=== PATIENT | male | born 1950 | race Caucasian/White ===

== ENCOUNTER 2017-01-30 12:02 | Inpatient (IN) | payer OTHER, MEDICAID ==
[~2017-01-30] VITALS: Ht 165.1 cm; Wt 71.9 kg
[2017-01-30 12:02] VITALS: BP_SYST 139
[2017-01-30 12:40] LABS: BASOPHILS # (AUTO) 0.1 K/uL (0.0-0.2); BASOPHILS % (AUTO) 0.6 % (0.0-2.0); EOSINOPHILS # (AUTO) 0.1 K/uL (0.0-0.4); EOSINOPHILS % (AUTO) 0.6 % (0.0-4.0); HEMATOCRIT 32.7 % (36-54); HEMOGLOBIN 10.8 g/dL (14.0-18.0); LYMPHOCYTES # (AUTO) 1.3 K/uL (1.0-5.5); LYMPHOCYTES % (AUTO) 8.1 % (20.5-51.5); MEAN CORPUSCULAR HEMOGLOBIN 29 pg (27-31); MEAN CORPUSCULAR HGB CONC 33 % (32-36); MEAN CORPUSCULAR VOLUME 89 fL (79.0-98.0); MONOCYTES # (AUTO) 1.2 K/uL (0.0-1.0); MONOCYTES % (AUTO) 7.7 % (1.7-9.3); NEUTROPHILS # (AUTO) 13.1 K/uL (1.8-7.7); PLATELET COUNT (AUTO) 182 K/uL (130-430); RED BLOOD CELL COUNT(AUTO) 3.67 MIL/uL (4.2-6.2); RED CELL DISTRIBUTION WIDTH 17.3 % (9.0-15.0); WHITE BLOOD COUNT (AUTO) 15.8 K/uL (4.8-10.8)
[2017-01-30 12:47] LABS: INR 1.2 (0.80-1.20); PROTHROMBIN TIME 13.5 SECS (9.5-12.5)
[2017-01-30 12:57] LABS: CREATININE 4.18 mg/dL (0.55-1.30); POTASSIUM 4.5 mmol/L (3.5-5.1); TOTAL BILIRUBIN 1.7 mg/dL (0.0-1.0); TOTAL PROTEIN, SERUM 8.2 g/dL (6.4-8.3)
[2017-01-30] MEDS ORDERED: CEFEPIME 1 GM in D5W 50 ML IV ONE (13:15)
[2017-01-30] MEDS ORDERED: VANCOMYCIN HCL 1,000 MG in NS 250 ML IV ONE (13:15)
[2017-01-30] MEDS ORDERED: LIDOCAINE 1%, 20 ML MDV 20 ML ONE (13:17)
[2017-01-30] MEDS ORDERED: AMI200 PO (13:25)
[2017-01-30] MEDS ORDERED: CEFEPIME 1 GM/VIAL (MAXIPIME) ONE ×2 (14:27→14:35)
[2017-01-30] MEDS ORDERED: VANCOMYCIN HCL 1000 MG/VIAL IV ONE (14:31)
[2017-01-30] MEDS ORDERED: SCOP1PAT TD (14:42)
[2017-01-30] MEDS ORDERED: PANT40TA4 IV (14:42)
[2017-01-30] MEDS ORDERED: INSU100V7 SUBCUT (14:42)
[2017-01-30] MEDS ORDERED: XOP.63 INH (14:42)
[2017-01-30] MEDS ORDERED: CEFE1VIA10 IV (14:42)
[2017-01-30] MEDS ORDERED: SEVE800T8 PO (14:42)
[2017-01-30] MEDS ORDERED: ESCI20TA37 PO (14:42)
[2017-01-30] MEDS ORDERED: [UNRECOGNIZED DRUG - CODE] IV (14:42)
[2017-01-30] MEDS ORDERED: COLL100 PO (14:42)
[2017-01-30] MEDS ORDERED: ISOS20TA8 PO (14:42)
[2017-01-30] MEDS ORDERED: FLUC100P12 IV (14:42)
[2017-01-30] MEDS ORDERED: INSU100V9 SUBCUT (14:42)
[2017-01-30] MEDS ORDERED: REGI10 IJ (14:42)
[2017-01-30] MEDS ORDERED: TYLL650 PO (14:42)
[2017-01-30 15:00] VITALS: BP_SYST 119
[2017-01-30] MEDS ORDERED: MORP2SYR INJ (15:06)
[2017-01-30] MEDS ORDERED: LORA2DIS5 IV (15:06)
[2017-01-30] MEDS ORDERED: IPRA3AMP9 INH (15:06)
[2017-01-30] MEDS ORDERED: NITR0.4T6 SL (15:06)
[2017-01-30] MEDS ORDERED: BISA10SU8 RC (15:06)
[2017-01-30 15:30] VITALS: BP_SYST 119
[2017-01-30] MEDS ORDERED: DEXTROSE 50% JECT 50 ML DISP.SYRIN IVP PRN (16:00)
[2017-01-30] MEDS ORDERED: ALBUTEROL SULFATE 0.083% 2.5 MG/3 ML VIAL.NEB INH PRN (16:00)
[2017-01-30] MEDS ORDERED: IPRATROPIUM BROM 0.5 MG/2.5 ML VIAL.NEB (ATROVENT) INH PRN (16:00)
[2017-01-30] MEDS ORDERED: PIPERACILLIN/TAZO 3.375/DEX-IS 50 ML IV SCH (16:00)
[2017-01-30 16:10] VITALS: BP_SYST 134
[2017-01-30 16:58] LABS: BLOOD GAS COHb% 0.3 % (0.5-1.5); BLOOD GAS HHB 1.3 % (0.0-6.0); BLOOD GAS PH 7.429 (7.350-7.450); BLOOD O2Hb% 98.4 % (94.0-97.0)
[2017-01-30] MEDS ORDERED: HEPARIN SODIUM,PORCINE 5000 UNITS/ML VIAL IVP ONE (18:15)
[2017-01-30] MEDS: IPRATROPIUM BROM 0.5 MG/2.5 ML VIAL.NEB (ATROVENT) INH SCH ×2 (19:00→23:24)
[2017-01-30] MEDS: ALBUTEROL SULFATE 0.083% 2.5 MG/3 ML VIAL.NEB INH SCH ×2 (19:00→23:24)
[2017-01-30 19:45] VITALS: BP_SYST 107
[2017-01-30] MEDS ORDERED: ZOSYN (PIPERACILLIN/TAZO) 3.375 GM in DEX-ISO (50ml) IV ONE (21:00)
[2017-01-30] MEDS ORDERED: LEVOFLOXACIN 250 MG/D5W 50 ML IV SCH (21:00)
[2017-01-30] MEDS: FAMOTIDINE PF 20 MG/2 ML VIAL IVP SCH (21:56)
[2017-01-30] MEDS: INSULIN REGULAR, HUMAN 100 UNITS/ML, 10 ML VIAL (novoLIN R) SUBCUT PRN (22:01)
[2017-01-30 23:59] VITALS: BP_SYST 97
[2017-01-31] MEDS ORDERED: PIPERACILLIN/TAZO 2.25G/DEX-IS 50 ML IV ONE (00:30)
[2017-01-31] MEDS ORDERED: PIPERACILLIN/TAZOBACTAM 2.25 GM VIAL IV ONE (01:27)
[2017-01-31] MEDS: IPRATROPIUM BROM 0.5 MG/2.5 ML VIAL.NEB (ATROVENT) INH SCH ×6 (03:00→23:15)
[2017-01-31] MEDS: ALBUTEROL SULFATE 0.083% 2.5 MG/3 ML VIAL.NEB INH SCH ×6 (03:00→23:15)
[2017-01-31 04:00] VITALS: BP_SYST 113
[2017-01-31] MEDS: INSULIN REGULAR, HUMAN 100 UNITS/ML, 10 ML VIAL (novoLIN R) SUBCUT PRN ×3 (05:29→17:04)
[2017-01-31 06:40] LABS: BASOPHILS % (AUTO) 0.3 % (0.0-2.0); EOSINOPHILS # (AUTO) 0.3 K/uL (0.0-0.4); EOSINOPHILS % (AUTO) 2.1 % (0.0-4.0); HEMATOCRIT 31.3 % (36-54); HEMOGLOBIN 9.7 g/dL (14.0-18.0); LYMPHOCYTES # (AUTO) 1.1 K/uL (1.0-5.5); LYMPHOCYTES % (AUTO) 7.5 % (20.5-51.5); MEAN CORPUSCULAR HEMOGLOBIN 28 pg (27-31); MEAN CORPUSCULAR HGB CONC 31 % (32-36); MEAN CORPUSCULAR VOLUME 90 fL (79.0-98.0); MONOCYTES # (AUTO) 0.9 K/uL (0.0-1.0); MONOCYTES % (AUTO) 6.3 % (1.7-9.3); NEUTROPHILS # (AUTO) 11.7 K/uL (1.8-7.7); PLATELET COUNT (AUTO) 157 K/uL (130-430); RED BLOOD CELL COUNT(AUTO) 3.49 MIL/uL (4.2-6.2)
[2017-01-31 07:08] LABS: CALCIUM 9.5 mg/dL (8.4-11.0); CREATININE 2.78 mg/dL (0.55-1.30); PHOSPHORUS 3.9 mg/dL (2.7-4.5); POTASSIUM 3.7 mmol/L (3.5-5.1)
[2017-01-31 08:00] VITALS: BP_SYST 117
[2017-01-31 11:39] LABS: NEUTROPHILS % (AUTO) 83.8 % (40.0-70.0)
[2017-01-31 12:00] VITALS: BP_SYST 122
[2017-01-31] MEDS: PIPERACILLIN/TAZOBACTAM 2.25 GM/ DEX-IS 50 ML PREMIX IV SCH (14:20)
[2017-01-31 16:27] VITALS: BP_SYST 121
[2017-01-31 19:40] VITALS: BP_SYST 129
[2017-01-31] MEDS: FAMOTIDINE PF 20 MG/2 ML VIAL IVP SCH (21:46)
[2017-02-01] MEDS: INSULIN REGULAR, HUMAN 100 UNITS/ML, 10 ML VIAL (novoLIN R) SUBCUT PRN ×4 (00:33→16:58)
[2017-02-01] MEDS: PIPERACILLIN/TAZOBACTAM 2.25 GM/ DEX-IS 50 ML PREMIX IV SCH ×2 (02:56→14:00)
[2017-02-01] MEDS: ALBUTEROL SULFATE 0.083% 2.5 MG/3 ML VIAL.NEB INH SCH ×6 (03:27→23:14)
[2017-02-01] MEDS: IPRATROPIUM BROM 0.5 MG/2.5 ML VIAL.NEB (ATROVENT) INH SCH ×6 (03:28→23:13)
[2017-02-01 05:32] VITALS: BP_SYST 100
[2017-02-01 06:42] LABS: BASOPHILS % (AUTO) 0.2 % (0.0-2.0); EOSINOPHILS # (AUTO) 0.2 K/uL (0.0-0.4); EOSINOPHILS % (AUTO) 1.3 % (0.0-4.0); HEMOGLOBIN 10.1 g/dL (14.0-18.0); LYMPHOCYTES # (AUTO) 1.1 K/uL (1.0-5.5); LYMPHOCYTES % (AUTO) 7.3 % (20.5-51.5); MEAN CORPUSCULAR HEMOGLOBIN 30 pg (27-31); MEAN CORPUSCULAR HGB CONC 34 % (32-36); MEAN CORPUSCULAR VOLUME 89 fL (79.0-98.0); MONOCYTES # (AUTO) 1.4 K/uL (0.0-1.0); MONOCYTES % (AUTO) 9.2 % (1.7-9.3); NEUTROPHILS # (AUTO) 12.2 K/uL (1.8-7.7); PLATELET COUNT (AUTO) 169 K/uL (130-430); RED BLOOD CELL COUNT(AUTO) 3.37 MIL/uL (4.2-6.2); RED CELL DISTRIBUTION WIDTH 17.2 % (9.0-15.0); WHITE BLOOD COUNT (AUTO) 14.9 K/uL (4.8-10.8)
[2017-02-01 06:53] LABS: CALCIUM 9.7 mg/dL (8.4-11.0); CREATININE 3.79 mg/dL (0.55-1.30); POTASSIUM 4.1 mmol/L (3.5-5.1)
[2017-02-01] MEDS ORDERED: IPRATROPIUM/ALBUTEROL SULFATE 3 ML AMPUL.NEB INH SCH (08:45)
[2017-02-01] MEDS ORDERED: NITROGLYCERIN 0.4 MG TAB.SUBL SL SCH (08:45)
[2017-02-01] MEDS ORDERED: METOCLOPRAMIDE HCL 10 MG/2 ML VIAL IVP PRN (08:45)
[2017-02-01] MEDS: BISACODYL 10 MG/SUPPOSITORY RC SCH (09:23)
[2017-02-01] MEDS: AMIODARONE HCL 200 MG TABLET PO SCH (09:23)
[2017-02-01] MEDS ORDERED: ACETAMINOPHEN 650 MG/20.3 ML UDC PO SCH (11:00)
[2017-02-01] MEDS ORDERED: ACETAMINOPHEN 650 MG/20.3 ML UDC PO PRN (11:15)
[2017-02-01 12:47] VITALS: BP_SYST 107
[2017-02-01 16:57] VITALS: BP_SYST 104
[2017-02-01] MEDS: VANCOMYCIN HCL 1,000 MG in NS 250 ML IV SCH (17:48)
[2017-02-01 19:30] VITALS: BP_SYST 121
[2017-02-01] MEDS: FAMOTIDINE PF 20 MG/2 ML VIAL IVP SCH (21:57)
[2017-02-02] VITALS (7 sets, daily range): BP systolic 95–145
[2017-02-02] MEDS: INSULIN REGULAR, HUMAN 100 UNITS/ML, 10 ML VIAL (novoLIN R) SUBCUT PRN ×4 (00:33→17:36)
[2017-02-02] MEDS: IPRATROPIUM BROM 0.5 MG/2.5 ML VIAL.NEB (ATROVENT) INH SCH ×6 (03:11→23:00)
[2017-02-02] MEDS: ALBUTEROL SULFATE 0.083% 2.5 MG/3 ML VIAL.NEB INH SCH ×6 (03:11→23:00)
[2017-02-02] MEDS: PIPERACILLIN/TAZOBACTAM 2.25 GM/ DEX-IS 50 ML PREMIX IV SCH ×2 (03:26→15:28)
[2017-02-02 07:13] LABS: BASOPHILS % (AUTO) 0.3 % (0.0-2.0); EOSINOPHILS # (AUTO) 0.4 K/uL (0.0-0.4); EOSINOPHILS % (AUTO) 3.1 % (0.0-4.0); HEMATOCRIT 29.4 % (36-54); HEMOGLOBIN 9.7 g/dL (14.0-18.0); LYMPHOCYTES # (AUTO) 1.3 K/uL (1.0-5.5); LYMPHOCYTES % (AUTO) 10.3 % (20.5-51.5); MEAN CORPUSCULAR HEMOGLOBIN 30 pg (27-31); MEAN CORPUSCULAR HGB CONC 33 % (32-36); MEAN CORPUSCULAR VOLUME 90 fL (79.0-98.0); MONOCYTES % (AUTO) 8.3 % (1.7-9.3); NEUTROPHILS # (AUTO) 9.7 K/uL (1.8-7.7); PLATELET COUNT (AUTO) 183 K/uL (130-430); RED BLOOD CELL COUNT(AUTO) 3.26 MIL/uL (4.2-6.2); RED CELL DISTRIBUTION WIDTH 17.9 % (9.0-15.0); WHITE BLOOD COUNT (AUTO) 12.4 K/uL (4.8-10.8)
[2017-02-02 07:24] LABS: CALCIUM 9.8 mg/dL (8.4-11.0); CREATININE 4.63 mg/dL (0.55-1.30); POTASSIUM 4.4 mmol/L (3.5-5.1)
[2017-02-02] MEDS: BISACODYL 10 MG/SUPPOSITORY RC SCH (16:43)
[2017-02-02] MEDS: AMIODARONE HCL 200 MG TABLET PO SCH (16:43)
[2017-02-02] MEDS: FAMOTIDINE PF 20 MG/2 ML VIAL IVP SCH (20:58)
[2017-02-03 01:33] VITALS: BP_SYST 124
[2017-02-03] MEDS: PIPERACILLIN/TAZOBACTAM 2.25 GM/ DEX-IS 50 ML PREMIX IV SCH ×2 (02:52→15:24)
[2017-02-03] MEDS: IPRATROPIUM BROM 0.5 MG/2.5 ML VIAL.NEB (ATROVENT) INH SCH ×5 (03:00→19:39)
[2017-02-03] MEDS: ALBUTEROL SULFATE 0.083% 2.5 MG/3 ML VIAL.NEB INH SCH ×5 (03:00→19:39)
[2017-02-03 04:00] VITALS: BP_SYST 115
[2017-02-03] MEDS: INSULIN REGULAR, HUMAN 100 UNITS/ML, 10 ML VIAL (novoLIN R) SUBCUT PRN ×3 (05:52→17:55)
[2017-02-03 08:00] VITALS: BP_SYST 126
[2017-02-03] MEDS: BISACODYL 10 MG/SUPPOSITORY RC SCH (09:13)
[2017-02-03] MEDS: AMIODARONE HCL 200 MG TABLET PO SCH (09:14)
[2017-02-03 12:02] VITALS: BP_SYST 121
[2017-02-03] MEDS: VANCOMYCIN HCL 1,000 MG in NS 250 ML IV SCH (17:54)
[2017-02-03 18:11] VITALS: BP_SYST 118
[2017-02-03 20:00] VITALS: BP_SYST 117
[2017-02-03] MEDS: FAMOTIDINE PF 20 MG/2 ML VIAL IVP SCH (21:32)
[2017-02-04] VITALS (7 sets, daily range): BP systolic 97–136
[2017-02-04] MEDS: INSULIN REGULAR, HUMAN 100 UNITS/ML, 10 ML VIAL (novoLIN R) SUBCUT PRN ×4 (01:00→18:34)
[2017-02-04] MEDS: PIPERACILLIN/TAZOBACTAM 2.25 GM/ DEX-IS 50 ML PREMIX IV SCH ×2 (03:30→15:18)
[2017-02-04] MEDS: ALBUTEROL SULFATE 0.083% 2.5 MG/3 ML VIAL.NEB INH SCH ×5 (07:03→23:48)
[2017-02-04] MEDS: IPRATROPIUM BROM 0.5 MG/2.5 ML VIAL.NEB (ATROVENT) INH SCH ×5 (07:03→23:47)
[2017-02-04] MEDS: AMIODARONE HCL 200 MG TABLET PO SCH (09:43)
[2017-02-04] MEDS: BISACODYL 10 MG/SUPPOSITORY RC SCH (09:43)
[2017-02-04] MEDS: FAMOTIDINE PF 20 MG/2 ML VIAL IVP SCH (21:56)
[2017-02-05 00:03] VITALS: BP_SYST 121
[2017-02-05] MEDS: INSULIN REGULAR, HUMAN 100 UNITS/ML, 10 ML VIAL (novoLIN R) SUBCUT PRN ×4 (01:20→23:58)
[2017-02-05] MEDS: ALBUTEROL SULFATE 0.083% 2.5 MG/3 ML VIAL.NEB INH SCH ×6 (03:46→23:04)
[2017-02-05] MEDS: IPRATROPIUM BROM 0.5 MG/2.5 ML VIAL.NEB (ATROVENT) INH SCH ×6 (03:47→23:04)
[2017-02-05] MEDS: PIPERACILLIN/TAZOBACTAM 2.25 GM/ DEX-IS 50 ML PREMIX IV SCH ×2 (03:58→14:25)
[2017-02-05 05:04] VITALS: BP_SYST 118
[2017-02-05 07:30] VITALS: BP_SYST 114
[2017-02-05] MEDS: BISACODYL 10 MG/SUPPOSITORY RC SCH (09:10)
[2017-02-05 09:12] VITALS: BP_SYST 116
[2017-02-05] MEDS: AMIODARONE HCL 200 MG TABLET PO SCH (09:12)
[2017-02-05 12:00] VITALS: BP_SYST 131
[2017-02-05 14:10] LABS: HEPATITIS A AB, IgM Negative (Negative); HEPATITIS B CORE AB, IgM Negative (Negative); HEPATITIS B SURFACE AG Negative (Negative)
[2017-02-05 16:54] VITALS: BP_SYST 103
[2017-02-05] MEDS: VANCOMYCIN HCL 1,000 MG in NS 250 ML IV SCH (17:29)
[2017-02-05] MEDS: MENTHOL/ZINC OXIDE 113 GM OINT. TP SCH (21:00)
[2017-02-05] MEDS: FAMOTIDINE PF 20 MG/2 ML VIAL IVP SCH (23:59)
[2017-02-06 00:50] VITALS: BP_SYST 115
[2017-02-06] MEDS: PIPERACILLIN/TAZOBACTAM 2.25 GM/ DEX-IS 50 ML PREMIX IV SCH ×2 (03:07→14:33)
[2017-02-06] MEDS: ALBUTEROL SULFATE 0.083% 2.5 MG/3 ML VIAL.NEB INH SCH ×4 (03:41→23:24)
[2017-02-06] MEDS: IPRATROPIUM BROM 0.5 MG/2.5 ML VIAL.NEB (ATROVENT) INH SCH ×4 (03:42→23:24)
[2017-02-06 06:30] VITALS: BP_SYST 119
[2017-02-06] MEDS: INSULIN REGULAR, HUMAN 100 UNITS/ML, 10 ML VIAL (novoLIN R) SUBCUT PRN ×3 (06:50→16:56)
[2017-02-06 09:52] LABS: MEAN CORPUSCULAR HEMOGLOBIN 29 pg (27-31)
[2017-02-06 09:56] LABS: BASOPHILS % (AUTO) 0.3 % (0.0-2.0); EOSINOPHILS # (AUTO) 0.3 K/uL (0.0-0.4); EOSINOPHILS % (AUTO) 3.1 % (0.0-4.0); HEMATOCRIT 28.1 % (36-54); HEMOGLOBIN 9.1 g/dL (14.0-18.0); LYMPHOCYTES # (AUTO) 1.4 K/uL (1.0-5.5); LYMPHOCYTES % (AUTO) 12.1 % (20.5-51.5); MEAN CORPUSCULAR HGB CONC 32 % (32-36); MEAN CORPUSCULAR VOLUME 90 fL (79.0-98.0); MONOCYTES % (AUTO) 8.9 % (1.7-9.3); NEUTROPHILS # (AUTO) 8.6 K/uL (1.8-7.7); NEUTROPHILS % (AUTO) 75.6 % (40.0-70.0); PLATELET COUNT (AUTO) 252 K/uL (130-430); RED BLOOD CELL COUNT(AUTO) 3.13 MIL/uL (4.2-6.2); RED CELL DISTRIBUTION WIDTH 16.6 % (9.0-15.0); WHITE BLOOD COUNT (AUTO) 11.3 K/uL (4.8-10.8)
[2017-02-06 10:08] LABS: ALBUMIN 3.4 g/dL (3.4-4.8); CALCIUM 9.9 mg/dL (8.4-11.0); CREATININE 4.18 mg/dL (0.55-1.30); POTASSIUM 3.7 mmol/L (3.5-5.1); TOTAL PROTEIN, SERUM 7.5 g/dL (6.4-8.3)
[2017-02-06] MEDS ORDERED: COMMUNICATION ORDER XX ONE (10:30)
[2017-02-06] MEDS ORDERED: HEPARIN SODIUM,PORCINE 5000 UNITS/ML VIAL SUBCUT ONE (10:45)
[2017-02-06] MEDS ORDERED: HEPARIN SODIUM, PORCINE 10,000 UNITS/ 10 ML VIAL MC ONE ×2 (10:45→11:30)
[2017-02-06 12:24] VITALS: BP_SYST 110
[2017-02-06 12:41] VITALS: BP_SYST 124
[2017-02-06] MEDS: BISACODYL 10 MG/SUPPOSITORY RC SCH (13:00)
[2017-02-06] MEDS: AMIODARONE HCL 200 MG TABLET PO SCH (13:00)
[2017-02-06] MEDS: MENTHOL/ZINC OXIDE 113 GM OINT. TP SCH ×4 (13:01→21:00)
[2017-02-06 16:28] VITALS: BP_SYST 126
[2017-02-06 20:00] VITALS: BP_SYST 132
[2017-02-06] MEDS: LEVOFLOXACIN 250 MG/D5W 50 ML IV SCH (21:30)
[2017-02-06] MEDS: FAMOTIDINE PF 20 MG/2 ML VIAL IVP SCH (21:43)
[2017-02-07] MEDS: INSULIN REGULAR, HUMAN 100 UNITS/ML, 10 ML VIAL (novoLIN R) SUBCUT PRN ×4 (00:08→16:34)
[2017-02-07 00:29] VITALS: BP_SYST 133
[2017-02-07] MEDS: PIPERACILLIN/TAZOBACTAM 2.25 GM/ DEX-IS 50 ML PREMIX IV SCH ×2 (03:15→15:08)
[2017-02-07] MEDS: ALBUTEROL SULFATE 0.083% 2.5 MG/3 ML VIAL.NEB INH SCH ×6 (03:27→23:00)
[2017-02-07] MEDS: IPRATROPIUM BROM 0.5 MG/2.5 ML VIAL.NEB (ATROVENT) INH SCH ×6 (03:27→23:00)
[2017-02-07 03:42] VITALS: BP_SYST 137
[2017-02-07 08:00] VITALS: BP_SYST 114
[2017-02-07] MEDS ORDERED: COMMUNICATION ORDER XX ONE ×2 (09:45→10:00)
[2017-02-07] MEDS ORDERED: ACETAMINOPHEN 650 MG/20.3 ML UDC GT PRN (09:59)
[2017-02-07] MEDS: AMIODARONE HCL 200 MG TABLET GT SCH (10:10)
[2017-02-07] MEDS: BISACODYL 10 MG/SUPPOSITORY RC SCH (10:10)
[2017-02-07] MEDS: traMADol HCL HCL 50 MG TABLET (ULTRAM) GT PRN (10:11)
[2017-02-07] MEDS: MENTHOL/ZINC OXIDE 113 GM OINT. TP SCH ×4 (10:12→21:27)
[2017-02-07 12:00] VITALS: BP_SYST 112
[2017-02-07] MEDS: MENTHOL/ZINC OXIDE 113 GM OINT. TP PRN ×3 (14:17→21:26)
[2017-02-07] MEDS: VANCOMYCIN HCL 1,000 MG in NS 250 ML IV SCH (17:55)
[2017-02-07 19:49] VITALS: BP_SYST 126
[2017-02-07] MEDS: FAMOTIDINE PF 20 MG/2 ML VIAL IVP SCH (21:25)
[2017-02-07] MEDS ORDERED: QUEtiapine FUMARATE 25 MG TABLET PO SCH (22:00)
[2017-02-07] MEDS ORDERED: QUEtiapine FUMARATE 25 MG TABLET GT SCH (22:00)
[2017-02-08] MEDS: INSULIN REGULAR, HUMAN 100 UNITS/ML, 10 ML VIAL (novoLIN R) SUBCUT PRN ×4 (00:04→17:17)
[2017-02-08 00:53] VITALS: BP_SYST 115
[2017-02-08] MEDS: IPRATROPIUM BROM 0.5 MG/2.5 ML VIAL.NEB (ATROVENT) INH SCH ×5 (02:46→23:00)
[2017-02-08] MEDS: ALBUTEROL SULFATE 0.083% 2.5 MG/3 ML VIAL.NEB INH SCH ×6 (02:46→23:00)
[2017-02-08] MEDS: PIPERACILLIN/TAZOBACTAM 2.25 GM/ DEX-IS 50 ML PREMIX IV SCH ×2 (05:04→14:14)
[2017-02-08 08:47] VITALS: BP_SYST 138
[2017-02-08] MEDS: MENTHOL/ZINC OXIDE 113 GM OINT. TP PRN ×3 (08:58→21:37)
[2017-02-08] MEDS: MENTHOL/ZINC OXIDE 113 GM OINT. TP SCH ×4 (09:14→21:38)
[2017-02-08] MEDS: BISACODYL 10 MG/SUPPOSITORY RC SCH (09:14)
[2017-02-08] MEDS: QUEtiapine FUMARATE 25 MG TABLET GT SCH ×2 (10:41→20:46)
[2017-02-08 12:13] VITALS: BP_SYST 124
[2017-02-08 16:15] VITALS: BP_SYST 113
[2017-02-08 20:40] VITALS: BP_SYST 143
[2017-02-08] MEDS: FAMOTIDINE PF 20 MG/2 ML VIAL IVP SCH (20:45)
[2017-02-08] MEDS: LEVOFLOXACIN 250 MG/D5W 50 ML IV SCH (20:46)
[2017-02-09] MEDS: INSULIN REGULAR, HUMAN 100 UNITS/ML, 10 ML VIAL (novoLIN R) SUBCUT PRN ×2 (00:22→05:41)
[2017-02-09 01:27] VITALS: BP_SYST 117
[2017-02-09] MEDS: PIPERACILLIN/TAZOBACTAM 2.25 GM/ DEX-IS 50 ML PREMIX IV SCH (02:16)
[2017-02-09] MEDS: ALBUTEROL SULFATE 0.083% 2.5 MG/3 ML VIAL.NEB INH SCH ×4 (03:00→16:02)
[2017-02-09] MEDS: IPRATROPIUM BROM 0.5 MG/2.5 ML VIAL.NEB (ATROVENT) INH SCH ×4 (03:00→16:02)
[2017-02-09 04:00] VITALS: BP_SYST 126
[2017-02-09] MEDS: QUEtiapine FUMARATE 25 MG TABLET GT SCH (07:33)
[2017-02-09] MEDS: BISACODYL 10 MG/SUPPOSITORY RC SCH (07:33)
[2017-02-09] MEDS: AMIODARONE HCL 200 MG TABLET GT SCH (07:33)
[2017-02-09 07:34] LABS: CALCIUM 10.2 mg/dL (8.4-11.0); CREATININE 4.73 mg/dL (0.55-1.30); POTASSIUM 3.9 mmol/L (3.5-5.1)
[2017-02-09] MEDS: MENTHOL/ZINC OXIDE 113 GM OINT. TP SCH (07:35)
[2017-02-09] MEDS: MENTHOL/ZINC OXIDE 113 GM OINT. TP PRN (07:35)
[2017-02-09 07:48] LABS: BASOPHILS % (AUTO) 0.4 % (0.0-2.0); EOSINOPHILS # (AUTO) 0.3 K/uL (0.0-0.4); EOSINOPHILS % (AUTO) 2.8 % (0.0-4.0); HEMATOCRIT 29.6 % (36-54); HEMOGLOBIN 9.4 g/dL (14.0-18.0); LYMPHOCYTES # (AUTO) 1.2 K/uL (1.0-5.5); LYMPHOCYTES % (AUTO) 13.1 % (20.5-51.5); MEAN CORPUSCULAR HEMOGLOBIN 29 pg (27-31); MEAN CORPUSCULAR HGB CONC 32 % (32-36); MEAN CORPUSCULAR VOLUME 90 fL (79.0-98.0); MONOCYTES # (AUTO) 0.7 K/uL (0.0-1.0); MONOCYTES % (AUTO) 7.7 % (1.7-9.3); NEUTROPHILS # (AUTO) 7.1 K/uL (1.8-7.7); PLATELET COUNT (AUTO) 223 K/uL (130-430); RED CELL DISTRIBUTION WIDTH 16.9 % (9.0-15.0); WHITE BLOOD COUNT (AUTO) 9.3 K/uL (4.8-10.8)
[2017-02-09] MEDS: traMADol HCL HCL 50 MG TABLET (ULTRAM) GT PRN (07:53)
[2017-02-09 08:32] VITALS: BP_SYST 138
[2017-02-09 08:38] LABS: ABG TOTAL HEMOGLOBIN 9.5 G/dL (12.0-18.0); BLOOD GAS BASE EXCESS -1.7 mmol/L (-3.0-3.0); BLOOD GAS COHb% 0.3 % (0.5-1.5); BLOOD GAS HHB 1.4 % (0.0-6.0); BLOOD GAS PH 7.435 (7.350-7.450); BLOOD O2Hb% 97.7 % (94.0-97.0)
[2017-02-09] MEDS ORDERED: HEPARIN SODIUM, PORCINE 10,000 UNITS/ 10 ML VIAL MC ONE ×3 (08:45→10:30)
[2017-02-09] MEDS ORDERED: HEPARIN SODIUM,PORCINE 5000 UNITS/ML VIAL ONE (11:08)
[2017-02-09 11:29] VITALS: BP_SYST 98
[2017-02-09 12:01] VITALS: BP_SYST 114
== END 2017-02-09 16:27 | DRG 870 ==
LOC: SED 12:02 → STU 13:54
PROVIDERS: ADMIT Internal Medicine Hospice and Palliative Medicine; ATTEND Internal Medicine Hospice and Palliative Medicine
PROC: 5A1955Z Respiratory Ventilation, Greater than 96 Consecutive Hours (ICD-10-PCS; principal; 2017-01-30)
PROC: 5A1D60Z (ICD-10-PCS; 2017-01-30)
DX: A41.9 Sepsis, unspecified organism (principal); N18.6 End stage renal disease; J96.20 Acute and chronic respiratory failure, unspecified whether with hypoxia or hypercapnia; I50.43 Acute on chronic combined systolic (congestive) and diastolic (congestive) heart failure; J14 Pneumonia due to Hemophilus influenzae; T82.838A Hemorrhage due to vascular prosthetic devices, implants and grafts, initial encounter; G82.20 Paraplegia, unspecified; I42.0 Dilated cardiomyopathy; I13.2 Hypertensive heart and chronic kidney disease with heart failure and with stage 5 chronic kidney disease, or end stage renal disease; Z99.11 Dependence on respirator [ventilator] status; N17.9 Acute kidney failure, unspecified; J44.0 Chronic obstructive pulmonary disease with (acute) lower respiratory infection; J44.9 Chronic obstructive pulmonary disease, unspecified; I34.0 Nonrheumatic mitral (valve) insufficiency; D63.1 Anemia in chronic kidney disease; Z66 Do not resuscitate; I25.10 Atherosclerotic heart disease of native coronary artery without angina pectoris; Y84.1 Kidney dialysis as the cause of abnormal reaction of the patient, or of later complication, without mention of misadventure at the time of the procedure; R41.0 Disorientation, unspecified; E11.22 Type 2 diabetes mellitus with diabetic chronic kidney disease; E78.5 Hyperlipidemia, unspecified; F03.90 Unspecified dementia, unspecified severity, without behavioral disturbance, psychotic disturbance, mood disturbance, and anxiety; Z95.1 Presence of aortocoronary bypass graft; Z99.2 Dependence on renal dialysis; Z93.0 Tracheostomy status; Z87.891 Personal history of nicotine dependence; I25.2 Old myocardial infarction; Z79.899 Other long term (current) drug therapy; Z79.4 Long term (current) use of insulin; Z93.1 Gastrostomy status; Z95.2 Presence of prosthetic heart valve; Z90.49 Acquired absence of other specified parts of digestive tract; Z95.810 Presence of automatic (implantable) cardiac defibrillator; Z78.1 Physical restraint status; Y92.89 Other specified places as the place of occurrence of the external cause
CPT/HCPCS: 36415; 36600; 70450-TC; 71010; 80048; 80053; 80074; 80202-TC; 82803-TC; 82962; 83605; 83735-TC; 84100-TC; 85025; 85610-TC; 86738; 87040-TC; 87070-TC; 87081; 87086; 87205-TC; 90935; 90937; 93005; 93306; 94002; 94003; 94640; 94760; 99285; J0692; J1644; J1815; J1956; J2001; J2543; J3370; J3490; J7030; J7040; J7050; J7060